=== PATIENT | male | born 1995 | race American Indian/Alaskan Native ===

== ENCOUNTER 2020-01-24 19:03 | Emergency (ER) | payer MEDICAID ==
--- NOTE | 2020-01-24 20:28 | Emergency Department Report ---
HPI - General Chief Complaint: Psych Time Seen by Provider: 01/24/20 20:14 - HPI HPI: Room 3 The patient is a 24-year-old male present with a chief complaint of catatonia. 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 The mother was asked the last time the patient was catatonic and she replies last night. When asked why she did not call 9 1 last night the mother does not reply. Mother states she just decided to call 911 today. Patient denies suicidal ideation but admits to auditory hallucination. When asked to further elucidate the patient does not respond. The patient occasionally answers questions with one-word answers or shaking or nodding his head. ED Past Medical Hx - Past Medical History Previous Medical History?: Yes Hx Psychiatric Treatment: Yes (schizophrenia,bipolar,depression) - Surgical History Past Surgical History?: No - Family History Family history: no significant - Social History Smoking Status: Never Smoker Substance Use Type: None (Denies illicit drug use) - Medications Home Medications: Home Medications Medication Instructions Recorded Confirmed Last Taken Type Paliperidone Palmitate [Invega 117 mg IM QMONTH 10/07/13 01/26/20 10/24/13 Histo ry Sustenna] ED Review of Systems ROS: Stated complaint: AMS Other details as noted in HPI Constitutional: no symptoms reported Respiratory: no symptoms reported Endocrine: no symptoms reported Psychiatric: auditory hallucinations. denies: suicidal thoughts Physical Exam - Physical Exam Vital Signs: Vital Signs 01/24/20 19:51 Temperature 98.4 F Pulse Rate 86 Respiratory 18 Rate Blood Pressure 116/75 Blood Pressure 116/75 [Right] O2 Sat by Pulse 98 Oximetry Physical Exam: GENERAL: The patient is well-developed well-nourished male lying on stretcher not appearing to be in acute distress. Patient answers questions verbally occasionally HEENT: Normocephalic. Atraumatic. Extraocular motions are intact. Patient has moist mucous membranes. NECK: Supple. Trachea midline CHEST/LUNGS: Clear to auscultation. There is no respiratory distress noted. HEART/CARDIOVASCULAR: Regular. There is no tachycardia. There is no gallop rub or murmur. ABDOMEN: Abdomen is soft, nontender. Patient has normal bowel sounds. There is no abdominal distention. SKIN: There is no rash. There is no edema. There is no diaphoresis. NEURO: The patient is awake and alert. Patient has flat affect. The patient is cooperative. The patient has no focal neurologic deficits. The patient has normal speech MUSCULOSKELETAL: There is no evidence of acute injury. ED Course Vital Signs 01/24/20 19:51 Temperature 98.4 F Pulse Rate 86 Respiratory 18 Rate Blood Pressure 116/75 Blood Pressure 116/75 [Right] O2 Sat by Pulse 98 Oximetry ED Medical Decision Making - Lab Data Result diagrams: 01/24/20 20:24 01/24/20 20:24 Laboratory Results - last 72 hr 01/24/20 01/24/20 01/24/20 20:24 20:24 20:24 WBC 7.1 RBC 3.90 Hgb 12.8 Hct 37.0 MCV 95 H MCH 33 H MCHC 35 H RDW 11.9 L Plt Count 215 Lymph % (Auto) 37.2 H [place] % (Auto) 7.7 H Eos % (Auto) 2.4 Baso % (Auto) 0.6 Lymph # 2.6 [place] # 0.5 Eos # 0.2 Baso # 0.0 Seg Neutrophils % 52.1 Seg Neutrophils # 3.7 Sodium 138 Potassium 3.4 L Chloride 102.2 Carbon Dioxide 22 Anion Gap 17 BUN 10 Creatinine 0.8 Estimated GFR > 60 BUN/Creatinine Ratio 13 Glucose 114 H Calcium 9.0 Urine Color Urine Turbidity Urine pH Ur Specific [place] Urine Protein Urine Glucose (UA) Urine Ketones Urine Blood Urine Nitrite Urine Bilirubin Urine Urobilinogen Ur Leukocyte Esterase Urine WBC (Auto) Urine RBC (Auto) U Epithel Cells (Auto) Urine Mucus Salicylates < 0.3 L Urine Opiates Screen Urine Methadone Screen Acetaminophen Ur Barbiturates Screen Ur Phencyclidine Scrn Ur Amphetamines Screen U Benzodiazepines Scrn Urine Cocaine Screen U Marijuana (THC) Screen Drugs of Abuse Note Plasma/Serum Alcohol 01/24/20 01/24/20 01/24/20 20:24 20:24 22:02 WBC RBC Hgb Hct MCV MCH MCHC RDW Plt Count Lymph % (Auto) [place] % (Auto) Eos % (Auto) Baso % (Auto) Lymph # [place] # Eos # Baso # Seg Neutrophils % Seg Neutrophils # Sodium Potassium Chloride Carbon Dioxide Anion Gap BUN Creatinine Estimated GFR BUN/Creatinine Ratio Glucose Calcium Urine Color Yellow Urine Turbidity Clear Urine pH 7.0 Ur Specific [place] 1.016 Urine Protein <15 mg/dl Urine Glucose (UA) Neg Urine Ketones Neg Urine Blood Sm Urine Nitrite Neg Urine Bilirubin Neg Urine Urobilinogen 4.0 Ur Leukocyte Esterase Neg Urine WBC (Auto) < 1.0 Urine RBC (Auto) 12.0 U Epithel Cells (Auto) < 1.0 Urine Mucus Few Salicylates Urine Opiates Screen Urine Methadone Screen Acetaminophen 5.0 L Ur Barbiturates Screen Ur Phencyclidine Scrn Ur Amphetamines Screen U Benzodiazepines Scrn Urine Cocaine Screen U Marijuana (THC) Screen Drugs of Abuse Note Plasma/Serum Alcohol < 0.01 01/24/20 22:02 WBC RBC Hgb Hct MCV MCH MCHC RDW Plt Count Lymph % (Auto) [place] % (Auto) Eos % (Auto) Baso % (Auto) Lymph # [place] # Eos # Baso # Seg Neutrophils % Seg Neutrophils # Sodium Potassium Chloride Carbon Dioxide Anion Gap BUN Creatinine Estimated GFR BUN/Creatinine Ratio Glucose Calcium Urine Color Urine Turbidity Urine pH Ur Specific [place] Urine Protein Urine Glucose (UA) Urine Ketones Urine Blood Urine Nitrite Urine Bilirubin Urine Urobilinogen Ur Leukocyte Esterase Urine WBC (Auto) Urine RBC (Auto) U Epithel Cells (Auto) Urine Mucus Salicylates Urine Opiates Screen Presumptive negative Urine Methadone Screen Presumptive negative Acetaminophen Ur Barbiturates Screen Presumptive negative Ur Phencyclidine Scrn Presumptive negative Ur Amphetamines Screen Presumptive negative U Benzodiazepines Scrn Presumptive negative Urine Cocaine Screen Presumptive negative U Marijuana (THC) Screen Presumptive negative Drugs of Abuse Note Disclamer Plasma/Serum Alcohol - Differential Diagnosis Schizophrenia Critical care attestation.: If time is entered above; I have spent that time in minutes in the direct care of this critically ill patient, excluding procedure time. ED Disposition Clinical Impression: Schizophrenia Disposition: [id number] PSY HOSP/PSY UNIT Is pt being admited?: No Does the pt Need Aspirin: No Condition: Stable Referrals: PRIMARY CARE, [Primary Care Provider] - 3-5 Days
[2020-01-24 20:48] LABS: Basophils % (Auto) 0.6 % (0.0-1.8); Eosinophils # (Auto) 0.2 K/mm3 (0.0-0.4); Eosinophils % (Auto) 2.4 % (0.0-4.3); Hemoglobin 12.8 gm/dl (11.8-15.2); Lymphocytes # (Auto) 2.6 K/mm3 (1.2-5.4); Lymphocytes % (Auto) 37.2 % (13.4-35.0); Mean Corpuscular HGB Conc 35 % (32-34); Mean Corpuscular Volume 95 fl (84-94); Monocytes # (Auto) 0.5 K/mm3 (0.0-0.8); Monocytes % (Auto) 7.7 % (0.0-7.3); Platelet Count 215 K/mm3 (140-440); Red Cell Distribution Width 11.9 % (13.2-15.2)
[2020-01-24 21:09] LABS: BUN/Creatinine Ratio 13; Blood Urea Nitrogen 10 mg/dL (9-20); Hemolysis Index 12
[2020-01-24 23:06] LABS: Bilirubin,Urine NEG (Negative); Blood,Urine SM (Negative); Color,Urine Yellow (Yellow); Mucus,Urine FEW /HPF; Protein,Urine <15 mg/dL mg/dL (Negative); WBC,Urine < 1.0 /HPF (0.0-6.0)
[2020-01-24 23:11] LABS: Amphetamine Screen,Urine PRESUMPTIVE NEGATIVE; Benzodiazepines Screen,Urine PRESUMPTIVE NEGATIVE; Cannabinoid Screen,Urine PRESUMPTIVE NEGATIVE; Cocaine Screen,Urine PRESUMPTIVE NEGATIVE; Methadone Screen,Urine PRESUMPTIVE NEGATIVE; Opiate Screen,Urine PRESUMPTIVE NEGATIVE
--- NOTE | 2020-01-26 11:34 | Consultation ---
History of Present Illness - Reason for Consult Consult date: 01/26/20 Reason for consult: AMS - History of Present Psychiatric Illness Melissa Morocho is a 24y/o male patient who was brought to the ER after his mother called 911. I attempted to interview the patient today. He is lying down asleep. He is led to a place of privacy. The patient is a/o x 2. He makes poor eye contact. He is pacing in one spot. He is whispering in a barely audible tone. He is responding to interval stimuli. He's unable to give any insight into what is going on with him or into his history. He states to me "I was just brought here. I don't know why." The patient appears to zone out at time. He stares into one spot. When I call his name, he looks at me with a bizarre look on his face. The patient then stares back into space. He looks at me when his name is called again. When asked was he hallucinating, the patient bucked his eyes and kept staring straight ahead. He would not answer or engage any further. PAST PSYCHIATRIC HISTORY Unable to assess PAST MEDICAL HISTORY: None reported Family Psychiatric History: None reported SOCIAL HISTORY Unable to asses REVIEW OF SYSTEMS Unable to assess MENTAL STATUS EXAMINATION General Appearance: Dressed appropriately Behavior: Disorganized Mood: Affect and affective range: Restricted, at times bizarre Thought Process: Disorganized Thought Content: Within reality Speech: low, barely audible Suicidal Ideation: Could not assess Homicidal Ideation: Could not assess Hallucinations: A/V Delusions: None elicited Insight and Judgment: Impaired Memory/Cognition: Impaired Diagnosis Schizophrenia RECOMMENDATIONS MEDICATIONS: Risperidone 0.5mg po BID Depakote DR 125mg po BID Trazodone 50mg po qhs Haldol 5mg IM q6h prn agitation Lorazepam 2mg IM q6h prn agitation Risks, benefits and alternatives of medications discussed with the patient, questions answered and consent obtained from patient. PSYCHOTHERAPY: Supportive psychotherapy provided MEDICAL: Per primary team DELIRIUM PRECAUTIONS: Please re-orient patient frequently, keep lights on during the day, and minimize benzodiazepines and opiates as these medications could worsen patient's confusion. 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 Legal Status: 1013 Will follow. Thank you for the consult. Please contact with any questions and/or concerns. Medications and Allergies Allergies Allergy/AdvReac Type Severity Reaction Status Date / Time No Known Allergies Allergy Verified 11/21/13 16:15 Home Medications Medication Instructions Recorded Confirmed Last Taken Type Benztropine [Cogentin] 2 mg PO BID 10/07/13 11/14/15 10/23/13 History Citalopram Hydrobromide [Celexa] 20 mg PO QDAY 10/07/13 11/14/15 10/23/13 Histo ry Paliperidone Palmitate [Invega 117 mg IM QMONTH 10/07/13 11/14/15 10/24/13 History Sustenna] Paliperidone (Nf) [Invega] 12 mg PO DAILY 11/14/15 11/14/15 Unknown History Vistaril (Nf) 25 mg PO TID 11/14/15 11/14/15 Unknown History traZODone [Desyrel] 100 mg PO DAILY 11/14/15 11/14/15 Unknown History Mental Status Exam - Vital signs Last Vital Signs Temp 98.1 F 01/26/20 00:20 Pulse 66 01/26/20 00:20 Resp 18 01/26/20 00:20 BP 120/60 01/26/20 00:20 Pulse Ox 96 01/26/20 00:20 Results Result Diagrams: 01/24/20 20:24 01/24/20 20:24 All other labs normal.
[2020-01-26] MEDS ORDERED: HALOPERIDOL LACTATE 5 MG/1 ML INJ IM PRN (11:36)
[2020-01-26] MEDS ORDERED: LORazepam 2 MG/ML VIAL IM PRN (11:36)
[2020-01-26] MEDS: DIVALPROEX DR 125 MG TAB PO SCH ×2 (12:40→21:54)
[2020-01-26] MEDS: risperiDONE 0.25 MG TAB PO SCH ×2 (12:40→21:54)
[2020-01-26] MEDS: traZODone 50 MG TAB PO SCH (21:54)
--- NOTE | 2020-01-27 08:59 | Progress Note ---
Subjective - Reason for Consult Consult date: 01/27/20 Reason for consult: hallucinations - Chief Complaint Chief complaint: I attempted to interview the patient today, he was lying down asleep. The patient initially would not open his eyes after calling his name several times and lightly shaking him. He then open his eyes briefly and just stared in one direction with his eyes bucked. The patient appeared to be hallucinating. The patient would not respond to any questioning. REVIEW OF SYSTEMS Unable to assess MENTAL STATUS EXAMINATION Could not asses Diagnosis Schizophrenia RECOMMENDATIONS MEDICATIONS: Increase Risperidone 1mg po BID Increase Depakote DR 250mg po BID Risks, benefits and alternatives of medications discussed with the patient, questions answered and consent obtained from patient. PSYCHOTHERAPY: Supportive psychotherapy provided MEDICAL: Per primary team DELIRIUM PRECAUTIONS: Please re-orient patient frequently, keep lights on during the day, and minimize benzodiazepines and opiates as these medications could worsen patient's confusion. 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 Legal Status: 1013 Will follow. Thank you for the consult. Please contact with any questions and/or concerns. Mental Status Exam - Vital signs Last Vital Signs Temp 97.9 F 01/27/20 08:40 Pulse 80 01/27/20 08:40 Resp 18 01/27/20 08:40 BP 110/56 01/27/20 08:40 Pulse Ox 100 01/27/20 08:40
[2020-01-27] MEDS: risperiDONE 1 MG TAB PO SCH (11:00)
[2020-01-27] MEDS: DIVALPROEX DR 250 MG TAB PO SCH (11:00)
[2020-01-28 01:45] VITALS: BP 100/60
[2020-01-28] MEDS: risperiDONE 1 MG TAB PO SCH (04:02)
[2020-01-28] MEDS: traZODone 50 MG TAB PO SCH (04:02)
[2020-01-28] MEDS: DIVALPROEX DR 250 MG TAB PO SCH (04:02)
== END 2020-01-28 04:30 ==
LOC: ED 19:03
DX: F20.2 Catatonic schizophrenia (principal); F31.9 Bipolar disorder, unspecified; Z79.899 Other long term (current) drug therapy
CPT/HCPCS: 36415; 80048; 80307; 80320; 81001; 85025; G0480